=== PATIENT | female | born 1960 | race African-American/Black ===

== ENCOUNTER 2023-06-22 12:46 | Inpatient (IN) | payer OTHER ==
[2023-06-22 13:53] VITALS: BMI 41.5
[2023-06-22] MEDS ORDERED: ONDANSETRON *ODT* 4 MG TABLET SL PRN (16:27)
[2023-06-22] MEDS ORDERED: BENZONATATE 200 MG CAPSULE PO PRN (16:27)
[2023-06-22] MEDS ORDERED: POLYETHYLENE GLYCOL (HEALTHYLAX) 3350 17 GM PACKET PO PRN (16:27)
[2023-06-22] MEDS ORDERED: IBUPROFEN 400 MG TABLET (FP) PO PRN (16:27)
[2023-06-22] MEDS ORDERED: P-EPHED 60MG/TRIPROLIDI 2.5MG TABLET PO PRN (16:27)
[2023-06-22] MEDS ORDERED: BENZOCAINE/MENTHOL (CHLORASEPTIC ) LOZENGE MM PRN (16:27)
[2023-06-22] MEDS ORDERED: BISMUTH SUBSALICYLATE 524 MG/30 ML PO PRN (16:27)
[2023-06-22] MEDS ORDERED: LOPERAMIDE HCL 2 MG CAPSULE PO PRN (16:27)
[2023-06-22] MEDS ORDERED: DICYCLOMINE HCL 10 MG CAPSULE PO PRN (16:27)
[2023-06-22] MEDS ORDERED: MAG HYDROX/AL HYDROX/SIMETH 30 ML UNIT-DOSE CUP PO PRN (16:27)
[2023-06-22] MEDS ORDERED: MAGNESIUM HYDROX 2400MG/30ML ORAL SUSPENSION 30 ML CUP PO PRN (16:27)
[2023-06-22] MEDS ORDERED: hydrOXYzine PAMOATE 25 MG CAPSULE (FP) PO PRN (16:27)
[2023-06-22] MEDS ORDERED: ACETAMINOPHEN 325 MG TABLET (FP) PO PRN (16:27)
[2023-06-22] MEDS ORDERED: IBUPROFEN 600 MG TABLET (FP) PO PRN (16:27)
[2023-06-22] MEDS ORDERED: guaiFENesin 600 MG TABLET.ER (FP) PO PRN (16:27)
[2023-06-22] MEDS: MELATONIN 5 MG TABLETS PO SCH (22:21)
[2023-06-22] MEDS: THIAMINE HCL 100 MG TABLET (FP) PO SCH (22:21)
[2023-06-23] MEDS ORDERED: cloNIDine HCL 0.1 MG TABLET PO ONE (06:44)
[2023-06-23 08:19] LABS: HEMATOCRIT 47.3 % (32.4-45.2); HEMOGLOBIN 14.9 GM/dL (10.7-15.3); MCH 26.3 pg (25.7-33.7); MCHC 31.6 g/dl (32.0-36.0); MEAN CELL VOLUME 83.4 fl (80-96); MEAN PLT VOLUME 8.9 fl (7.5-11.1); PLATELET COUNT 314 10^3/uL (134-434); RBC 5.67 M/mm3 (3.60-5.2); RDW 16.2 % (11.6-15.6); WHITE BLOOD COUNT 8.4 K/mm3 (4.0-10.0)
[2023-06-23 08:51] LABS: CHLORIDE 106 mmol/L (98-107); POTASSIUM 3.2 mmol/L (3.5-5.1); SODIUM 143 mmol/L (136-145)
[2023-06-23 08:54] LABS: CALCIUM 8.9 mg/dL (8.5-10.1)
[2023-06-23 08:55] LABS: ALBUMIN 3.1 g/dl (3.4-5.0); ANION GAP 10 mmol/L (4-13); BLOOD UREA NITROGEN 12.4 mg/dL (7-18); CO2 27 mmol/L (21-32); GLUCOSE,RANDOM 120 mg/dL (74-106)
[2023-06-23 08:58] LABS: CREATININE 0.7 mg/dL (0.55-1.3); SGOT/AST 33 U/L (15-37); SGPT/ALT 31 U/L (13-61)
[2023-06-23 09:00] LABS: BILIRUBIN,TOTAL 0.4 mg/dL (0.2-1); TOT PROT 6.6 g/dl (6.4-8.2)
[2023-06-23 09:01] LABS: ALK PHOS 97 U/L (45-117)
[2023-06-23] MEDS ORDERED: diazePAM 5 MG TABLET PO PRN (09:21)
[2023-06-23] MEDS: PRENATAL VITAMINS W/ FOLIC ACID TABLET (FP) PO SCH (10:43)
[2023-06-23] MEDS: amLODIPine BESYLATE 10 MG TABLET (FP) PO SCH (10:45)
[2023-06-23] MEDS: diazePAM 5 MG TABLET PO SCH ×3 (10:45→22:17)
[2023-06-23] MEDS ORDERED: POTASSIUM CHLORIDE ORAL LIQUID 20 MEQ/15 ML PO ONE (11:24)
[2023-06-23] MEDS: POTASSIUM CHLORIDE ORAL LIQUID 20 MEQ/15 ML PO SCH (22:17)
[2023-06-23] MEDS: MELATONIN 5 MG TABLETS PO SCH (22:17)
[2023-06-23] MEDS: THIAMINE HCL 100 MG TABLET (FP) PO SCH (22:17)
[2023-06-24] MEDS: diazePAM 5 MG TABLET PO SCH ×3 (05:46→22:37)
[2023-06-24] MEDS: INSULIN ASPART SLIDING SCALE (NOVOLOG) 1 VIAL SQ SCH (06:08)
[2023-06-24] MEDS: POTASSIUM CHLORIDE ORAL LIQUID 20 MEQ/15 ML PO SCH ×2 (10:46→22:36)
[2023-06-24] MEDS: amLODIPine BESYLATE 10 MG TABLET (FP) PO SCH (10:46)
[2023-06-24] MEDS: PRENATAL VITAMINS W/ FOLIC ACID TABLET (FP) PO SCH (10:46)
[2023-06-24] MEDS: THIAMINE HCL 100 MG TABLET (FP) PO SCH (22:36)
[2023-06-24] MEDS: MELATONIN 5 MG TABLETS PO SCH (22:36)
[2023-06-25] MEDS: diazePAM 5 MG TABLET PO SCH ×2 (06:04→17:55)
[2023-06-25] MEDS: INSULIN ASPART SLIDING SCALE (NOVOLOG) 1 VIAL SQ SCH (07:37)
[2023-06-25] MEDS: amLODIPine BESYLATE 10 MG TABLET (FP) PO SCH (10:29)
[2023-06-25] MEDS: PRENATAL VITAMINS W/ FOLIC ACID TABLET (FP) PO SCH (10:29)
[2023-06-25] MEDS: THIAMINE HCL 100 MG TABLET (FP) PO SCH (22:19)
[2023-06-25] MEDS: MELATONIN 5 MG TABLETS PO SCH (22:19)
[2023-06-26] MEDS ORDERED: diazePAM 5 MG TABLET PO ONE (06:00)
[2023-06-26] MEDS: INSULIN ASPART SLIDING SCALE (NOVOLOG) 1 VIAL SQ SCH (06:47)
[2023-06-26] MEDS: amLODIPine BESYLATE 10 MG TABLET (FP) PO SCH (09:26)
[2023-06-26] MEDS: PRENATAL VITAMINS W/ FOLIC ACID TABLET (FP) PO SCH (09:26)
[2023-06-26 09:31] VITALS: BP 145/100; PULSE 82; RESP 17; TEMP 98.4
== END 2023-06-26 09:50 | disposition home or self-care (01) | DRG 897 ==
LOC: YASAS 12:46 → Y6N 16:41
PROVIDERS: ADMIT Allergy & Immunology; ATTEND Surgery
PROC: HZ2ZZZZ Detoxification Services for Substance Abuse Treatment (ICD-10-PCS; principal; 2023-06-22)
DX: F10.230 Alcohol dependence with withdrawal, uncomplicated (principal); F10.282 Alcohol dependence with alcohol-induced sleep disorder; F32.9 Major depressive disorder, single episode, unspecified; I10 Essential (primary) hypertension; E87.6 Hypokalemia; E11.9 Type 2 diabetes mellitus without complications; Z79.84 Long term (current) use of oral hypoglycemic drugs; M17.0 Bilateral primary osteoarthritis of knee; Z28.310 Unvaccinated for COVID-19; Z28.9 Immunization not carried out for unspecified reason
CPT/HCPCS: 36415; 80053; 80307; 82962; 83036; 84132; 85027; 86780; 87635

== ENCOUNTER 2024-02-15 08:21 | Inpatient (IN) | payer OTHER ==
[2024-02-15 08:57] VITALS: BMI 42.4
[2024-02-15] MEDS ORDERED: BENZONATATE 200 MG CAPSULE PO PRN (09:06)
[2024-02-15] MEDS ORDERED: LOPERAMIDE HCL 2 MG CAPSULE PO PRN (09:06)
[2024-02-15] MEDS ORDERED: IBUPROFEN 400 MG TABLET (FP) PO PRN (09:06)
[2024-02-15] MEDS ORDERED: BISMUTH SUBSALICYLATE 262 MG/15 ML BTL PO PRN (09:06)
[2024-02-15] MEDS ORDERED: guaiFENesin 600 MG TABLET.ER (FP) PO PRN (09:06)
[2024-02-15] MEDS ORDERED: DICYCLOMINE HCL 10 MG CAPSULE PO PRN (09:06)
[2024-02-15] MEDS ORDERED: MAG HYDROX/AL HYDROX/SIMETH 30 ML UNIT-DOSE CUP PO PRN (09:06)
[2024-02-15] MEDS ORDERED: ONDANSETRON *ODT* 4 MG TABLET SL PRN (09:06)
[2024-02-15] MEDS ORDERED: ACETAMINOPHEN 325 MG TABLET (FP) PO PRN (09:06)
[2024-02-15] MEDS ORDERED: POLYETHYLENE GLYCOL (HEALTHYLAX) 3350 17 GM PACKET PO PRN (09:06)
[2024-02-15] MEDS ORDERED: BENZOCAINE/MENTHOL (CHLORASEPTIC ) LOZENGE MM PRN (09:06)
[2024-02-15] MEDS ORDERED: MAGNESIUM HYDROX 2400MG/30ML ORAL SUSPENSION 30 ML CUP PO PRN (09:06)
[2024-02-15] MEDS ORDERED: PRENATAL VITAMINS W/ FOLIC ACID TABLET (FP) PO ONE (09:45)
[2024-02-15] MEDS ORDERED: IBUPROFEN 600 MG TABLET (FP) PO ONE (09:45)
[2024-02-15] MEDS ORDERED: amLODIPine BESYLATE 5 MG TABLET (FP) ONE (09:45)
[2024-02-15] MEDS: IBUPROFEN 600 MG TABLET (FP) PO PRN (09:55)
[2024-02-15] MEDS: PRENATAL VITAMINS W/ FOLIC ACID TABLET (FP) PO SCH (09:55)
[2024-02-15] MEDS: amLODIPine BESYLATE 10 MG TABLET (FP) PO SCH (09:56)
[2024-02-15] MEDS: METHOCARBAMOL 500 MG TABLET PO PRN (12:13)
[2024-02-15] MEDS: THIAMINE 100 MG TABLET PO SCH (22:48)
[2024-02-15] MEDS: MELATONIN 5 MG TABLETS PO SCH (22:48)
[2024-02-15] MEDS: ATORVASTATIN CA 40 MG TABLET (FP) PO SCH (22:48)
[2024-02-16 09:22] LABS: HEMOGLOBIN 14.3 GM/dL (10.7-15.3); MCHC 32.6 g/dl (32.0-36.0); MEAN CELL VOLUME 82.9 fl (80-96); MEAN PLT VOLUME 9.7 fl (7.5-11.1); PLATELET COUNT 304 10^3/uL (134-434); RBC 5.31 M/mm3 (3.60-5.2); RDW 17.2 % (11.6-15.6); WHITE BLOOD COUNT 8.2 K/mm3 (4.0-10.0)
[2024-02-16 09:28] LABS: POTASSIUM 3.2 mmol/L (3.5-5.1)
[2024-02-16 09:35] LABS: ALBUMIN 3.3 g/dl (3.4-5.0); BLOOD UREA NITROGEN 15.4 mg/dL (7-18); CALCIUM 8.7 mg/dL (8.5-10.1)
[2024-02-16 09:39] LABS: CREATININE 0.8 mg/dL (0.55-1.3)
[2024-02-16 09:41] LABS: BILIRUBIN,TOTAL 0.4 mg/dL (0.2-1); TOT PROT 6.7 g/dl (6.4-8.2)
[2024-02-16] MEDS ORDERED: POTASSIUM CHLORIDE ORAL LIQUID 20 MEQ/15 ML PO ONE (11:46)
[2024-02-16] MEDS: POTASSIUM CHLORIDE ORAL LIQUID 20 MEQ/15 ML PO ONE (14:08)
[2024-02-16] MEDS ORDERED: diazePAM 5 MG TABLET PO PRN (17:10)
[2024-02-16] MEDS: ALBUTEROL SO4 HFA INHALER IH PRN (22:05)
[2024-02-16] MEDS: diazePAM 5 MG TABLET PO SCH (22:06)
[2024-02-17] MEDS: diazePAM 5 MG TABLET PO SCH (05:38)
[2024-02-17 12:55] LABS: POTASSIUM 2.8 mmol/L (3.5-5.1)
[2024-02-17] MEDS: POTASSIUM CHLORIDE TABS 20 MEQ TABLET.ER (FP) PO ONE (14:18)
[2024-02-17] MEDS: LISINOPRIL 5 MG TABLET PO ONE (14:19)
[2024-02-18] MEDS: diazePAM 5 MG TABLET PO SCH (05:50)
[2024-02-18] MEDS: POTASSIUM CHLORIDE TABS 20 MEQ TABLET.ER (FP) PO SCH (15:27)
[2024-02-19] MEDS: diazePAM 5 MG TABLET PO ONE (06:06)
[2024-02-19 09:37] VITALS: BP 131/62; PULSE 71; RESP 18; TEMP 97.6
== END 2024-02-19 10:05 | disposition home or self-care (01) | DRG 897 ==
LOC: YASAS 08:21 → Y6N 10:21
PROVIDERS: ADMIT Allergy & Immunology; ATTEND Psychiatry & Neurology Pain Medicine
PROC: HZ2ZZZZ Detoxification Services for Substance Abuse Treatment (ICD-10-PCS; principal; 2024-02-15)
DX: F10.230 Alcohol dependence with withdrawal, uncomplicated (principal); F17.210 Nicotine dependence, cigarettes, uncomplicated; F10.282 Alcohol dependence with alcohol-induced sleep disorder; F32.9 Major depressive disorder, single episode, unspecified; I10 Essential (primary) hypertension; E87.6 Hypokalemia; E11.9 Type 2 diabetes mellitus without complications; Z79.84 Long term (current) use of oral hypoglycemic drugs; J45.909 Unspecified asthma, uncomplicated; M17.0 Bilateral primary osteoarthritis of knee
CPT/HCPCS: 36415; 80053; 80305; 80307; 82962; 84132; 85027; 86780; 93005; 93010